=== PATIENT | female | born 1955 | race Caucasian/White ===

== ENCOUNTER → 2017-06-11 | Outpatient (CLI) | payer MEDICARE, OTHER ==
--- NOTE | 2017-06-11 16:17 | RAD ---
Indication: Hip pain. Technique: 2 views of the right hip are submitted for review. No comparison is available. Findings: Small area of increased density in the proximal right femur measures 4 x 2 mm in size, nonspecific however may represent small bone island. There is no evidence of an acute fracture or dislocation. There is no joint space narrowing. Impression: Negative for fracture.
== END | disposition home or self-care (01) ==
LOC: DXRAD 15:43
PROVIDERS: ATTEND General Practice
DX: M25.551 Pain in right hip (principal); I25.10 Atherosclerotic heart disease of native coronary artery without angina pectoris
CPT/HCPCS: 73502